=== PATIENT | female | born 1990 | race Caucasian/White ===

== ENCOUNTER 2019-08-25 10:48 | Emergency (ER) | payer MEDICAID ==
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
[2019-08-25] MEDS ORDERED: KETOROLAC 30 MG/ML VIAL IVP STA (11:27)
--- NOTE | 2019-08-25 11:59 | XRAY Report ---
Reason: chest pain Procedure Date: 08/25/2019 Accession Number: [id number] / [id number] Procedure: XR - Chest 1 View X-Ray CPT Code: 74857 Final Report FULL RESULT: EXAM: CHEST RADIOGRAPHY EXAM DATE: 08/25/2019 11:46 AM. CLINICAL HISTORY: Chest pain. COMPARISON: None. TECHNIQUE: 1 view. FINDINGS: Lungs/Pleura: No focal opacities evident. No pleural effusion. No pneumothorax. Mediastinum: Within exam limitations, the cardiomediastinal contour is normal. Other: None. IMPRESSION: Normal single view chest. RADIA
[2019-08-25] MEDS ORDERED: ALBUTEROL 1 PUFF INH STA (12:01)
[2019-08-25 12:15] LABS: BASOPHILS # (AUTO) 0.1 10^3/uL (0.0-0.1); BASOPHILS % (AUTO) 0.7 %; EOSINOPHILS # (AUTO) 0.2 10^3/uL (0.0-0.7); EOSINOPHILS % (AUTO) 1.9 %; HGB - HEMOGLOBIN 15.1 g/dL (12.0-16.0); LYMPHOCYTES # (AUTO) 2.4 10^3/uL (1.5-3.5); LYMPHOCYTES % (AUTO) 29.3 %; MEAN CORPUSCULAR HEMOGLOBIN 30.3 pg (27.0-31.0); MEAN CORPUSCULAR HGB CONC 32.2 g/dL (32.0-36.0); MEAN CORPUSCULAR VOLUME 94.2 fL (81.0-99.0); MEAN PLATELET VOLUME 9.3 fL (7.9-10.8); MONOCYTES # (AUTO) 0.4 10^3/uL (0.0-1.0); MONOCYTES % (AUTO) 5.1 %; NEUTROPHILS # (AUTO) 5.1 10^3/uL (1.5-6.6); NEUTROPHILS % (AUTO) 62.5 %; PLT - PLATELET COUNT 345 10^3/uL (130-450); RED BLOOD COUNT 4.98 10^6/uL (4.20-5.40); RED CELL DISTRIBUTION WIDTH 13.4 % (12.0-15.0); WHITE BLOOD COUNT 8.2 x10^3/uL (4.8-10.8)
[2019-08-25 12:27] LABS: ALBUMIN 4.1 g/dL (3.2-5.5); ALBUMIN/GLOBULIN RATIO 1.1 (1.0-2.2); BILIRUBIN,TOTAL 0.5 mg/dL (0.2-1.0); CALCIUM 8.9 mg/dL (8.5-10.3); CREATININE 0.6 mg/dL (0.4-1.0); TOTAL PROTEIN 7.7 g/dL (6.7-8.2)
[2019-08-25] MEDS ORDERED: CHERRY SYRUP 10 ML UDC PO ONE (13:52)
[2019-08-25] MEDS ORDERED: DEXAMETHASONE 10 MG/ML VIAL PO STA (13:52)
[2019-08-25 15:07] VITALS: BP 135/70
== END 2019-08-25 15:07 | disposition home or self-care (01) ==
LOC: ED 10:48
DX: F41.9 Anxiety disorder, unspecified (principal); J45.21 Mild intermittent asthma with (acute) exacerbation; F32.9 Major depressive disorder, single episode, unspecified
CPT/HCPCS: 36415; 71045; 80053; 83690; 84484; 85025; 85379; 93005; 94640; 96374; 99284; A9270

== ENCOUNTER 2019-10-03 09:34 | Outpatient (CLI) | payer MEDICAID | END 2019-10-03 09:35 | disposition home or self-care (01) | LOC: RT 09:34 | PROVIDERS: ATTEND Physician Assistant Medical | DX: R06.02 Shortness of breath (principal) | CPT/HCPCS: 94010 ==

== ENCOUNTER 2019-10-27 11:53 | Emergency (ER) | payer MEDICAID ==
--- NOTE | 2019-10-27 12:29 | ED Physician Documentation ---
History of Present Illness - Stated complaint Stated Complaint: LT WRIST PX - Chief complaint Chief Complaint: Ext Problem - History obtained from History obtained from: Patient - History of Present Illness Timing: Today Pain level max: 10 Pain level now: 10 - Additonal information Additional information: 29-year-old female states that she has had a "growth" on her left wrist for the past 2 months. Saw her doctor who states it was a ganglion cyst. She states she was referred to [facility] orthopedics, but is having trouble getting an appointment. Having increasing pain so came to the emergency department. Worse with movement and better with rest. Does not recall any injury. Review of Systems Constitutional: denies: Fever, Chills GI: denies: Vomiting : denies: Now [place] PD PAST MEDICAL HISTORY - Past Medical History Past Medical History: No - Past Surgical History Past Surgical History: No - Present Medications Home Medications: Ambulatory Orders Medication Instructions Recorded Confirmed Albuterol Sulf [Ventolin Hfa 1 - 2 puffs INH Q4HR PRN #1 inhaler 08/25/19 Inhaler] Venlafaxine HCl 37.5 mg PO DAILY #30 tablet 08/25/19 predniSONE [Prednisone] 40 mg PO DAILY #10 tablet 08/25/19 Meloxicam [Mobic] 7.5 mg PO BID PRN #20 tablet 10/27/19 - Allergies Allergies/Adverse Reactions: Allergies Allergy/AdvReac Type Severity Reaction Status Date / Time No Known Drug Allergies Allergy Verified 10/27/19 12:12 - Living Situation Living Situation: reports: With family Living Arrangement: reports: At home - Social History Does the pt smoke?: Yes PD ED PE NORMAL - Vitals Vital signs reviewed: Yes - General General: Alert and oriented X 3, No acute distress - HEENT HEENT: Moist mucous membranes - Neck Neck: Supple, no meningeal sign - Derm Derm: Warm and dry - Extremities Extremities: Other (Left distal radius, bony prominence with tenderness over the distal aspect. No erythema. No swelling. Neurovascular intact. Otherwise normal examination of the hand and wrist.) - Neuro Neuro: Alert and oriented X 3 - Psych Psych: Normal mood, Normal affect Results - Vitals Vitals: Vital Signs - 24 hr 10/27/19 12:06 Temperature 36.8 C Heart Rate 80 Respiratory 16 Rate Blood Pressure 148/91 H O2 Saturation 96 Oxygen O2 Source Room air - Rads (name of study) Left wrist x-ray Radiology: Prelim report reviewed, EMP read contemporaneously, See rad report (No gross acute left wrist fracture or dislocation. ) PD MEDICAL DECISION MAKING - ED course Complexity details: reviewed results, re-evaluated patient, considered differential, d/w patient ED course: Patient with what appears to be a bony prominence on the distal radius, the tendon appears to be rubbing on this prominence. Will place her in a Velcro thumb spica splint and have her follow-up with orthopedics. We will place her on anti-inflammatories as well. Patient is right-handed. Neurovascular intact. Patient counseled regarding signs and symptoms for which I believe and urgent re-evaluation would be necessary. Patient with good understanding of and agreement to plan and is comfortable going home at this time This document was made in part using voice recognition software. While efforts are made to proofread this document, sound alike and grammatical errors may occur. Departure - Departure Disposition: 01 Home, Self Care Clinical Impression: Bony prominence Condition: Good Instructions: ED Tendinitis Calcific Follow-Up: BHASKAR RUIZ MD [Primary Care Provider] - [facility] [Provider Group] - Within 1 week Prescriptions: Meloxicam [Mobic] 7.5 mg PO BID PRN #20 tablet PRN Reason: Pain Comments: Follow up with orthopedics for further care. Return if you worsen. wear the brace for comfort. Call orthopedics for an appointment.
--- NOTE | 2019-10-27 13:17 | XRAY Report ---
PROCEDURE: Wrist 3 View LT INDICATIONS: L wrist pain, distal radius TECHNIQUE: 3 views of the wrist were acquired. COMPARISON: None FINDINGS: Bones: No fractures or dislocations. No suspicious bony lesions. Scaphoid view: Scaphoid is intact. Soft tissues: No suspicious soft tissue calcifications. IMPRESSION: No gross acute left wrist fracture or dislocation. Reviewed by: Addison Olvera MD on 10/27/2019 1:16 PM PDT Approved by: Addison Olvera MD on 10/27/2019 1:16 PM PDT Station ID: [id number]
[2019-10-27 13:39] VITALS: BP 118/85
== END 2019-10-27 13:28 | disposition home or self-care (01) ==
LOC: ED 11:53
DX: M85.9 Disorder of bone density and structure, unspecified (principal)
CPT/HCPCS: 99283; 99284

== ENCOUNTER 2020-03-03 19:59 | Emergency (ER) | payer MEDICAID ==
--- NOTE | 2020-03-03 20:20 | ED Physician Documentation ---
History of Present Illness - Stated complaint Stated Complaint: FEET SWELLING/PX - Chief complaint Chief Complaint: General - History obtained from History obtained from: Patient - Additonal information Additional information: She was drinking only Mountain Dew for a couple of weeks. No water. Because of that she noted decreased urine output. Because of the decreased urine output today she started drinking more water. Even though she does not like water. Her urine output became normal and clear but then she noticed redness and swelling of her feet they were discolored. Now that is back to normal. Denies shortness of breath. No history of kidney issues. Denies drug use or possibility of . Review of Systems Constitutional: denies: Fever, Chills, Fatigue Cardiac: denies: Chest pain / pressure, Palpitations Respiratory: denies: Dyspnea, Cough PD PAST MEDICAL HISTORY - Past Medical History Cardiovascular: Other Other Past Medical History: prehypertension, pericarditis - Past Surgical History Past Surgical History: No - Present Medications Home Medications: Ambulatory Orders Medication Instructions Recorded Confirmed Albuterol Sulf [Ventolin Hfa 1 - 2 puffs INH Q4HR PRN #1 inhaler 08/25/19 Inhaler] - Allergies Allergies/Adverse Reactions: Allergies Allergy/AdvReac Type Severity Reaction Status Date / Time No Known Drug Allergies Allergy Verified 10/27/19 12:12 - Social History Does the pt smoke?: Yes Smoking Status: Current every day smoker Does the pt drink ETOH?: No Does the pt have substance abuse?: No - Immunizations Immunizations are current?: Yes - POLST Patient has POLST: No PD ED PE NORMAL - Vitals Vital signs reviewed: Yes - General General: Alert and oriented X 3, No acute distress - HEENT HEENT: PERRL, EOMI - Neck Neck: Supple, no meningeal sign, No bony TTP - Cardiac Cardiac: RRR, No murmur - Respiratory Respiratory: No respiratory distress, Clear bilaterally - Abdomen Abdomen: Normal bowel sounds, Soft, Non tender - Extremities Extremities: Other (Feet are normal in color, warm and well perfused with bounding radial pulses. There is no discoloration or swelling. No calf tenderness.) - Neuro Neuro: Alert and oriented X 3, Normal speech Results - Vitals Vitals: Vital Signs - 24 hr 03/03/20 20:00 Temperature 36.6 C Heart Rate 118 H Respiratory 18 Rate Blood Pressure 131/66 H O2 Saturation 100 Oxygen O2 Source Room air - Labs Labs: Laboratory Tests 03/03/20 03/03/20 03/03/20 20:21 20:21 20:31 Sodium 137 Potassium 3.4 L Chloride 102 Carbon Dioxide 25 Anion Gap 10.0 BUN 23 H Creatinine 0.5 Estimated GFR (MDRD) 144 Glucose 77 Calcium 8.7 Urine Color YELLOW Urine Clarity CLEAR Urine pH 7.5 Ur Specific [place] 1.025 Urine Protein NEGATIVE Urine Glucose (UA) NEGATIVE Urine Ketones NEGATIVE Urine Occult Blood NEGATIVE Urine Nitrite NEGATIVE Urine Bilirubin NEGATIVE Urine Urobilinogen 1 (NORMAL) Ur Leukocyte Esterase NEGATIVE Ur Microscopic Review NOT INDICATED Urine Culture Comments NOT INDICATED Urine HCG, Qual NEGATIVE Urine Opiates Screen POSITIVE H Ur Oxycodone Screen NEGATIVE Urine Methadone Screen NEGATIVE Ur Propoxyphene Screen NEGATIVE Ur Barbiturates Screen NEGATIVE Ur Tricyclics Screen NEGATIVE Ur Phencyclidine Scrn NEGATIVE Ur Amphetamine Screen POSITIVE H U Methamphetamines Scrn POSITIVE H U Benzodiazepines Scrn NEGATIVE Urine Cocaine Screen NEGATIVE U Cannabinoids Screen POSITIVE H PD MEDICAL DECISION MAKING - ED course ED course: 30-year-old woman presents worried about kidney function in the setting of having drank only Mountain Dew for the last 2 weeks. On labs her kidney function is fine. She does have methamphetamines in her system which she denied at the outset but admitted to after seeing the results. She was counseled to quit and she plans to do so. Departure - Departure Disposition: 01 Home, Self Care Clinical Impression: Foot pain, bilateral, Methamphetamine abuse, Dehydration Condition: Good Record reviewed to determine appropriate education?: Yes Instructions: ED Dehydration, ED Drug Abuse General Comments: Drink plenty of fluids and avoid sugary caffeinated beverages like Mountain Dew. Return for new or worsening symptoms. Avoid all illicit drugs including but not limited to methamphetamines. Follow-up with your doctor.
[2020-03-03 20:27] LABS: MUDS CUTOFF CONCENTRATIONS CUTOFF CONC BELOW:
[2020-03-03 20:31] LABS: BILIRUBIN,URINE NEGATIVE (NEGATIVE); GLUCOSE, URINE (UA) NEGATIVE (NEGATIVE); KETONES,URINE (UA) NEGATIVE (NEGATIVE); LEUKOCYTE ESTERASE, URINE NEGATIVE (NEGATIVE); NITRITE,URINE NEGATIVE (NEGATIVE); OCCULT BLOOD,URINE NEGATIVE (NEGATIVE); PH,URINE 7.5 PH (5.0-7.5); PROTEIN,URINE NEGATIVE (NEGATIVE); UROBILINOGEN,URINE 1 (NORMAL) E.U./dL (NORMAL)
[2020-03-03 20:33] LABS: CLARITY,URINE CLEAR (CLEAR); HCG UR QUAL NEGATIVE
[2020-03-03 20:41] LABS: AMPHETAMINE SCREEN,URINE POSITIVE (NEGATIVE); BENZODIAZEPINES SCREEN, URINE NEGATIVE (NEGATIVE); COCAINE SCREEN URINE NEGATIVE (NEGATIVE); METHADONE SCREEN, URINE NEGATIVE (NEGATIVE); METHAMPHETAMINES SCREEN, URINE POSITIVE (NEGATIVE); OPIATE SCREEN, URINE POSITIVE (NEGATIVE); OXYCODONE SCREEN, URINE NEGATIVE (NEGATIVE); PROPOXYPHENE SCREEN, URINE NEGATIVE (NEGATIVE); TRICYCLIC ANTIDEPRESSANT,URINE NEGATIVE (NEGATIVE)
[2020-03-03 20:45] LABS: CALCIUM 8.7 mg/dL (8.5-10.3); CREATININE 0.5 mg/dL (0.4-1.0)
[2020-03-03 21:09] VITALS: BP 125/93
== END 2020-03-03 21:09 | disposition home or self-care (01) ==
LOC: ED 19:59
DX: M79.672 Pain in left foot (principal); M79.671 Pain in right foot; F15.10 Other stimulant abuse, uncomplicated; F17.200 Nicotine dependence, unspecified, uncomplicated; R03.0 Elevated blood-pressure reading, without diagnosis of hypertension; E86.0 Dehydration
CPT/HCPCS: 36415; 80048; 80306; 81001; 81003; 81025; 87086; 99283; 99284

== ENCOUNTER 2020-07-29 10:03 | Outpatient (CLI) | payer MEDICAID ==
[2020-07-29 12:00] LABS: BASOPHILS # (AUTO) 0.1 10^3/uL (0.0-0.1); BASOPHILS % (AUTO) 0.9 %; EOSINOPHILS # (AUTO) 0.3 10^3/uL (0.0-0.7); EOSINOPHILS % (AUTO) 3.4 %; HCT - HEMATOCRIT 45.7 % (37.0-47.0); HGB - HEMOGLOBIN 14.5 g/dL (12.0-16.0); LYMPHOCYTES # (AUTO) 2.5 10^3/uL (1.5-3.5); LYMPHOCYTES % (AUTO) 31.5 %; MEAN CORPUSCULAR HEMOGLOBIN 30.9 pg (27.0-31.0); MEAN CORPUSCULAR HGB CONC 31.7 g/dL (32.0-36.0); MEAN CORPUSCULAR VOLUME 97.4 fL (81.0-99.0); MEAN PLATELET VOLUME 10.3 fL (7.9-10.8); MONOCYTES # (AUTO) 0.3 10^3/uL (0.0-1.0); MONOCYTES % (AUTO) 3.7 %; NEUTROPHILS # (AUTO) 4.8 10^3/uL (1.5-6.6); NEUTROPHILS % (AUTO) 60.1 %; PLT - PLATELET COUNT 297 10^3/uL (130-450); RED BLOOD COUNT 4.69 10^6/uL (4.20-5.40); RED CELL DISTRIBUTION WIDTH 12.7 % (12.0-15.0)
[2020-07-29 12:19] LABS: ALBUMIN 4.3 g/dL (3.2-5.5); ALBUMIN/GLOBULIN RATIO 1.5 (1.0-2.2); ALKALINE PHOSPHATASE 58 IU/L (42-121); ALT ALANINE AMINOTRANSFERASE 18 IU/L (10-60); AST ASPARTATE AMINOTRANSFERASE 22 IU/L (10-42); BILIRUBIN,TOTAL 0.4 mg/dL (0.2-1.0); BUN - BLOOD UREA NITROGEN 16 mg/dL (6-20); CALCIUM 8.6 mg/dL (8.5-10.3); CARBON DIOXIDE - CO2 26 mmol/L (21-32); CHLORIDE 105 mmol/L (101-111); CHOLESTEROL 218 mg/dL; CREATININE 0.6 mg/dL (0.4-1.0); GFR - MDRD 117 (>89); GLUCOSE 84 mg/dL (70-100); HDL CHOLESTEROL 55 mg/dL; LDL CHOLESTEROL,CALCULATED 139 mg/dL; LDL/HDL RATIO 2.5 (<4.4); POTASSIUM 3.5 mmol/L (3.5-5.0); SODIUM 139 mmol/L (135-145); TOTAL PROTEIN 7.2 g/dL (6.7-8.2); TRIGLYCERIDES 121 mg/dL; VLDL CHOLESTEROL 24 mg/dL
[2020-07-29 12:28] LABS: THYROID STIMULATING HORMONE 1.89 uIU/mL (0.34-5.60)
== END 2020-07-29 10:04 | disposition home or self-care (01) ==
LOC: LAB.N 10:03
PROVIDERS: ATTEND Nurse Practitioner Family
DX: R03.0 Elevated blood-pressure reading, without diagnosis of hypertension (principal)
CPT/HCPCS: 36415; 80053; 80061; 83721; 84443; 85025

== ENCOUNTER 2020-11-29 16:17 | Outpatient (CLI) | payer MEDICAID, MEDICARE ==
--- NOTE | 2020-11-29 17:01 | XRAY Report ---
PROCEDURE: Ankle 3 View RT INDICATIONS: ANKLE PAIN, RIGHT TECHNIQUE: 3 views of the ankle were acquired. COMPARISON: None. FINDINGS: Bones: No fractures or dislocations. Ankle mortise is normally aligned. No suspicious bony lesions . Soft tissues: No tibiotalar joint effusion. Achilles tendon appears normal. IMPRESSION: A definite source of current pain is not identified. A metallic marker has been placed a t the medial aspect of the hindfoot area, and trauma in this region is not seen. Reviewed by: Bernard Ruvalcaba MD on 11/29/2020 5:00 PM PDT Approved by: Bernard Ruvalcaba MD on 11/29/2020 5:00 PM PDT Station ID: [id number]
== END 2020-11-29 16:18 | disposition home or self-care (01) ==
LOC: DI.N 16:17
PROVIDERS: ATTEND Family Medicine
DX: M25.571 Pain in right ankle and joints of right foot (principal)

== ENCOUNTER 2021-02-03 08:00 | Outpatient (CLI) | payer MEDICAID | END 2021-02-03 23:59 | disposition home or self-care (01) | LOC: LAB.N 08:00 | PROVIDERS: ATTEND Family Medicine | DX: R05.9 Cough, unspecified (principal); Z20.822 Contact with and (suspected) exposure to COVID-19 ==

== ENCOUNTER 2021-07-02 11:26 | Emergency (ER) | payer MEDICAID ==
[2021-07-02 12:17] LABS: BASOPHILS # (AUTO) 0.1 10^3/uL (0.0-0.1); BASOPHILS % (AUTO) 0.7 %; EOSINOPHILS # (AUTO) 0.3 10^3/uL (0.0-0.7); EOSINOPHILS % (AUTO) 3.2 %; HCT - HEMATOCRIT 48.9 % (37.0-47.0); HGB - HEMOGLOBIN 16.4 g/dL (12.0-16.0); LYMPHOCYTES % (AUTO) 35.6 %; MEAN CORPUSCULAR HEMOGLOBIN 31.4 pg (27.0-31.0); MEAN CORPUSCULAR HGB CONC 33.5 g/dL (32.0-36.0); MEAN CORPUSCULAR VOLUME 93.7 fL (81.0-99.0); MEAN PLATELET VOLUME 9.5 fL (7.9-10.8); MONOCYTES # (AUTO) 0.5 10^3/uL (0.0-1.0); MONOCYTES % (AUTO) 5.3 %; NEUTROPHILS # (AUTO) 4.7 10^3/uL (1.5-6.6); PLT - PLATELET COUNT 291 10^3/uL (130-450); RED BLOOD COUNT 5.22 10^6/uL (4.20-5.40); WHITE BLOOD COUNT 8.5 x10^3/uL (4.8-10.8)
[2021-07-02 12:26] LABS: BILIRUBIN,URINE NEGATIVE (NEGATIVE); GLUCOSE, URINE (UA) NEGATIVE (NEGATIVE); KETONES,URINE (UA) NEGATIVE (NEGATIVE); LEUKOCYTE ESTERASE, URINE NEGATIVE (NEGATIVE); NITRITE,URINE NEGATIVE (NEGATIVE); OCCULT BLOOD,URINE NEGATIVE (NEGATIVE); PH,URINE 5.5 PH (5.0-7.5); PROTEIN,URINE NEGATIVE (NEGATIVE); UROBILINOGEN,URINE 0.2 (NORMAL) E.U./dL (NORMAL)
[2021-07-02 12:28] LABS: CLARITY,URINE CLEAR (CLEAR); HCG UR QUAL NEGATIVE
[2021-07-02 12:31] LABS: ALBUMIN 4.7 g/dL (3.2-5.5); ALBUMIN/GLOBULIN RATIO 1.3 (1.0-2.2); BILIRUBIN,TOTAL 0.6 mg/dL (0.2-1.0); CALCIUM 9.1 mg/dL (8.5-10.3); CREATININE 0.7 mg/dL (0.4-1.0); POTASSIUM 3.6 mmol/L (3.5-5.0); TOTAL PROTEIN 8.3 g/dL (6.7-8.2)
[2021-07-02] MEDS ORDERED: HYDROmorphone 1 MG/ML CARPUJECT IVP STA (12:44)
--- NOTE | 2021-07-02 12:49 | ED Physician Documentation ---
History of Present Illness - Stated complaint Stated Complaint: LT BACK PX, ABD PX - Chief complaint Chief Complaint: Abd Pain - History obtained from History obtained from: Patient - History of Present Illness Timing: Yesterday Pain level max: 8 Pain level now: 6 - Additonal information Additional information: Patient is a 31-year-old female who presents to the emergency department left lower quadrant abdominal pain. Started yesterday and has continued throughout the day today. She states it feels similar to her prior kidney infection but is not having any urinary symptoms. Nothing makes it better or worse. She states she is getting ready to start her menses. She states that she has not had any diarrhea but has had some constipation. No nausea or vomiting. No fevers. No STD exposure. Review of Systems Constitutional: denies: Fever, Chills Respiratory: denies: Cough GI: denies: Nausea, Vomiting, Diarrhea, Hematemesis, Bloody / black stool : denies: Dysuria, Frequency, Hesitancy, Discharge Skin: denies: Rash Musculoskeletal: denies: Neck pain, Back pain PD PAST MEDICAL HISTORY - Past Medical History Past Medical History: Yes Cardiovascular: Other Other Past Medical History: Pulmonary hypertension. - Past Surgical History Past Surgical History: No General: Appendectomy - Present Medications Home Medications: Ambulatory Orders Medication Instructions Recorded Confirmed Albuterol Sulf [Ventolin Hfa 1 - 2 puffs INH Q4HR PRN #1 inhaler 08/25/19 Inhaler] Ondansetron Odt [Zofran] 4 mg TL Q6H PRN #10 tablet 07/02/21 Oxycodone HCl/Acetaminophen 1 - 2 each PO Q6H PRN #14 tablet 07/02/21 [Percocet 5-325 mg Tablet] - Allergies Allergies/Adverse Reactions: Allergies Allergy/AdvReac Type Severity Reaction Status Date / Time No Known Drug Allergies Allergy Verified 07/02/21 11:37 - Social History Does the pt smoke?: Yes Smoking Status: Current every day smoker Does the pt drink ETOH?: No Does the pt have substance abuse?: Yes Substance Use and Type: Marijuana, Meth - Immunizations Immunizations are current?: Yes - POLST Patient has POLST: No PD ED PE NORMAL - Vitals Vital signs reviewed: Yes - General General: Alert and oriented X 3, No acute distress - HEENT HEENT: Moist mucous membranes - Neck Neck: Supple, no meningeal sign - Cardiac Cardiac: RRR, Strong equal pulses - Respiratory Respiratory: No respiratory distress, Clear bilaterally - Abdomen Abdomen: Soft, Non distended, Other (Mild tenderness to palpation left lower quadrant. Otherwise normal exam) - Back Back: No CVA TTP, No spinal TTP - Derm Derm: Warm and dry - Extremities Extremities: No edema, No calf tenderness / cord - Neuro Neuro: Alert and oriented X 3 - Psych Psych: Normal mood, Normal affect Results - Vitals Vitals: Vital Signs - 24 hr 07/02/21 07/02/21 07/02/21 11:33 13:31 14:43 Temperature 36.8 C 37 C Heart Rate 101 H 93 59 L Respiratory 16 18 20 Rate Blood Pressure 148/83 H 109/99 H 103/77 O2 Saturation 100 100 100 Oxygen O2 Source Room air - Labs Labs: Laboratory Tests 07/02/21 07/02/21 07/02/21 11:45 12:14 12:14 WBC 8.5 RBC 5.22 Hgb 16.4 H Hct 48.9 H MCV 93.7 MCH 31.4 H MCHC 33.5 RDW 13.0 Plt Count 291 MPV 9.5 Neut # (Auto) 4.7 Lymph # (Auto) 3.0 [place] # (Auto) 0.5 Eos # (Auto) 0.3 Baso # (Auto) 0.1 Absolute Nucleated RBC 0.00 Nucleated RBC % 0.0 Sodium 134 L Potassium 3.6 Chloride 99 L Carbon Dioxide 24 Anion Gap 11.0 BUN 18 Creatinine 0.7 Estimated GFR (MDRD) 97 Glucose 69 L Calcium 9.1 Total Bilirubin 0.6 AST 15 ALT 14 Alkaline Phosphatase 59 Total Protein 8.3 H Albumin 4.7 Globulin 3.6 Albumin/Globulin Ratio 1.3 Lipase 39 Urine Color YELLOW Urine Clarity CLEAR Urine pH 5.5 Ur Specific [place] >=1.030 H Urine Protein NEGATIVE Urine Glucose (UA) NEGATIVE Urine Ketones NEGATIVE Urine Occult Blood NEGATIVE Urine Nitrite NEGATIVE Urine Bilirubin NEGATIVE Urine Urobilinogen 0.2 (NORMAL) Ur Leukocyte Esterase NEGATIVE Ur Microscopic Review NOT INDICATED Urine Culture Comments NOT INDICATED Urine HCG, Qual NEGATIVE - Rads (name of study) CT abdomen and pelvis Radiology: Final report received, EMP read contemporaneously, See rad report Pelvic ultrasound Radiology: Final report received, EMP read contemporaneously, See rad report PD MEDICAL DECISION MAKING - ED course Complexity details: reviewed results, re-evaluated patient, considered differ ential, d/w patient ED course: 31-year-old female with a hemorrhagic ovarian cyst. Pain well controlled. We will have her follow-up with her doctor for further care. Patient counseled regarding signs and symptoms for which I believe and urgent re-evaluation would be necessary. Patient with good understanding of and agreement to plan and is comfortable going home at this time This document was made in part using voice recognition software. While efforts are made to proofread this document, sound alike and grammatical errors may occur. IMPRESSION: 1. Appearance of ruptured left hemorrhagic cyst. 2. Appearance of hemorrhagic cyst on the right on CT likely represents tilt of the uterus as it is not visualized on current ultrasound. IMPRESSION: Rim-enhancing foci within the adnexa surrounded by mild fluid most suggestive of hemorrhagic cyst, likely partially ruptured. Departure - Departure Disposition: 01 Home, Self Care Clinical Impression: Hemorrhagic cyst of left ovary Condition: Good Instructions: ED Cyst Ovarian Follow-Up: Claudia Sousa ARNP [Primary Care Provider] - Within 1 week Prescriptions: Oxycodone HCl/Acetaminophen [Percocet 5-325 mg Tablet] 1 - 2 each PO Q6H PRN #14 tablet PRN Reason: pain Ondansetron Odt [Zofran] 4 mg TL Q6H PRN #10 tablet PRN Reason: Nausea / Vomiting Comments: You have a hemorrhagic ovarian cyst on the left. This should resolve on its own. Please follow-up with your doctor for further care. Your prescription was sent to [facility] in [place]. I am prescribing a short course of narcotic pain medication for you. These are potentially dangerous and addictive medications that should be used carefully. These medications may constipate you. Take an [id number] stool softener (docusate) twice daily with plenty of water while taking these medications. If you go 24 hours without a bowel movement, take [id number] miralax, per package instructions. Do not drink or drive while taking these medications. If you received narcotic or sedating medications while in the emergency department, do not drive for 24 hours. Store this medication in a safe, secure place and out of reach of children. It is a violation of federal law to give or sell this medication to another person or to use in a manner other than prescribed. The ED will not refill narcotic prescriptions, including prescriptions lost or stolen. To dispose of unwanted medications: 1. [facility] at [address] in [place] has a medication drop box. They accept prescription medications (in pill form) Wednesday through Wednesday 9:00 a.m. to 5:00 p.m. 2. [facility] [employer] accepts prescription medications (in pill form only) for disposal year round. Call for more information. 3. Contact the [facility] for the next [employer] sponsored prescription d rug collection event. , [phone], or [phone]; Discharge Date/Time: 07/02/21 15:10
[2021-07-02] MEDS ORDERED: IOVERSOL 320 100 ML VIAL IVP ONE ×2 (13:19→13:52)
--- NOTE | 2021-07-02 14:07 | CT Report ---
PROCEDURE: Abdomen/Pelvis W INDICATIONS: LLQ abd pain CONTRAST: IV CONTRAST: Optiray 320 ml: 100 PO CONTRAST: *NO PO CONTRAST TECHNIQUE: After the administration of IV contrast, 5 mm thick sections acquired from the diaphragms to the symp hysis. 5 mm thick coronal and sagittal reformats were acquired. For radiation dose reduction, the f ollowing was used: automated exposure control, adjustment of mA and/or kV according to patient size. COMPARISON: Pelvic ultrasound 07/02/2021 FINDINGS: Image quality: Excellent. ABDOMEN: Lung bases: Lung bases are clear. Heart size is normal. Solid organs: Liver and spleen are normal in size and enhancement. Gallbladder Biliary system is non dilated. Pancreas enhances normally. No adrenal nodules. Kidneys demonstrate normal size an d enhancement, without hydronephrosis. Peritoneum and bowel: Bowel loops demonstrate normal wall thickness and caliber. No free fluid or a ir. Nodes and vessels: No retroperitoneal or mesenteric adenopathy by size criteria. Aorta and inferior vena cava are normal in size. Miscellaneous: No ventral hernias. PELVIS: Genitourinary: Bladder wall thickness is normal. Rim-enhancing low-attenuation foci are present wit hin the ovaries bilaterally measuring 1.6 cm on the left and 2.9 cm on the right. Mild surrounding fr ee fluid is present. Miscellaneous: No inguinal hernias or adenopathy. Bones: No suspicious bony lesions. No vertebral body compression fractures. IMPRESSION: Rim-enhancing foci within the adnexa surrounded by mild fluid most suggestive of hemorrhagic cyst, li sanjuana partially ruptured. Reviewed by: Cecile Ray MD on 07/02/2021 2:06 PM PST Approved by: Cecile Ray MD on 07/02/2021 2:06 PM PST Station ID: [id number]
--- NOTE | 2021-07-02 14:17 | Ultrasound Report ---
PROCEDURE: Pelvic w/Transvag+Doppler Comp INDICATIONS: pelvic pain, L TECHNIQUE: Real-time scanning was performed of the pelvic organs, with image documentation. Additional endovagi nal scanning was necessary due to incomplete visualization of the adnexal and endometrial structures by transabdominal scanning. Doppler was performed with waveforms. COMPARISON: None. FINDINGS: No pathologic free abdominal or pelvic fluid. Uterus: Uterus is normal in size at 9.4 x 5.0 x 6.7 cm. The endometrium measures 14 mm in combined thickness. Ovaries: Right ovary measures 3.1 x 1.5 x 2.1 cm. Volume measures 5.2 cc. Left ovary measures 3.9 x 1.9 x 2.6 cm. Volume measures 10.3 cc. There is a focus of heterogeneous echogenicity within the left ovary with minimal surrounding fluid. Normal appearing arterial and venous waveforms are confirmed t o each ovary.] IMPRESSION: 1. Appearance of ruptured left hemorrhagic cyst. 2. Appearance of hemorrhagic cyst on the right on CT likely represents tilt of the uterus as it is no t visualized on current ultrasound. Reviewed by: Cecile Ray MD on 07/02/2021 2:15 PM PST Approved by: Cecile Ray MD on 07/02/2021 2:15 PM PST Station ID: [id number]
[2021-07-02 14:47] VITALS: BP 103/77
[2021-07-02] MEDS ORDERED: oxyCODONE 5 MG TABLET PO STA (14:51)
== END 2021-07-02 15:10 | disposition home or self-care (01) ==
LOC: ED 11:26
DX: N83.202 Unspecified ovarian cyst, left side (principal); F17.200 Nicotine dependence, unspecified, uncomplicated
CPT/HCPCS: 36415; 74177; 76830; 76856; 80053; 81003; 81025; 83690; 85025; 93975; 96374; 99282; 99284; A9270; J1170; Q9967; 81001; 87086

== ENCOUNTER 2021-08-28 09:44 | Outpatient (CLI) | payer MEDICAID ==
[2021-08-28 11:48] LABS: BASOPHILS # (AUTO) 0.1 10^3/uL (0.0-0.1); BASOPHILS % (AUTO) 0.9 %; EOSINOPHILS # (AUTO) 0.3 10^3/uL (0.0-0.7); EOSINOPHILS % (AUTO) 3.1 %; LYMPHOCYTES # (AUTO) 2.9 10^3/uL (1.5-3.5); LYMPHOCYTES % (AUTO) 36.4 %; MEAN CORPUSCULAR HEMOGLOBIN 30.7 pg (27.0-31.0); MEAN CORPUSCULAR HGB CONC 32.6 g/dL (32.0-36.0); MEAN CORPUSCULAR VOLUME 94.3 fL (81.0-99.0); MEAN PLATELET VOLUME 9.8 fL (7.9-10.8); MONOCYTES # (AUTO) 0.4 10^3/uL (0.0-1.0); MONOCYTES % (AUTO) 5.2 %; NEUTROPHILS # (AUTO) 4.3 10^3/uL (1.5-6.6); NEUTROPHILS % (AUTO) 54.1 %; PLT - PLATELET COUNT 358 10^3/uL (130-450); RED BLOOD COUNT 4.56 10^6/uL (4.20-5.40)
[2021-08-28 12:14] LABS: BILIRUBIN,URINE NEGATIVE (NEGATIVE); GLUCOSE, URINE (UA) NEGATIVE (NEGATIVE); KETONES,URINE (UA) NEGATIVE (NEGATIVE); LEUKOCYTE ESTERASE, URINE NEGATIVE (NEGATIVE); NITRITE,URINE NEGATIVE (NEGATIVE); OCCULT BLOOD,URINE NEGATIVE (NEGATIVE); PROTEIN,URINE NEGATIVE (NEGATIVE); UROBILINOGEN,URINE 0.2 (NORMAL) E.U./dL (NORMAL)
[2021-08-28 12:15] LABS: CLARITY,URINE CLEAR (CLEAR)
[2021-08-28 12:20] LABS: ALBUMIN 4.2 g/dL (3.2-5.5); ALBUMIN/GLOBULIN RATIO 1.4 (1.0-2.2); ALKALINE PHOSPHATASE 50 IU/L (42-121); ALT ALANINE AMINOTRANSFERASE 20 IU/L (10-60); AST ASPARTATE AMINOTRANSFERASE 19 IU/L (10-42); BILIRUBIN,TOTAL 0.3 mg/dL (0.2-1.0); BUN - BLOOD UREA NITROGEN 15 mg/dL (6-20); CALCIUM 8.9 mg/dL (8.5-10.3); CARBON DIOXIDE - CO2 27 mmol/L (21-32); CHLORIDE 101 mmol/L (101-111); CHOL/HDL RATIO 3.7 (<4.4); CHOLESTEROL 210 mg/dL; CREATININE 0.6 mg/dL (0.4-1.0); GFR - MDRD 116 (>89); GLUCOSE 78 mg/dL (70-100); HDL CHOLESTEROL 57 mg/dL; LDL CHOLESTEROL,CALCULATED 128 mg/dL; LDL/HDL RATIO 2.2 (<4.4); POTASSIUM 4.2 mmol/L (3.5-5.0); SODIUM 138 mmol/L (135-145); TOTAL PROTEIN 7.1 g/dL (6.7-8.2); TRIGLYCERIDES 124 mg/dL; VLDL CHOLESTEROL 25 mg/dL
[2021-08-28 12:22] LABS: THYROID STIMULATING HORMONE 1.95 uIU/mL (0.34-5.60)
== END 2021-08-28 09:45 | disposition home or self-care (01) ==
LOC: LAB.N 09:44
PROVIDERS: ATTEND Nurse Practitioner
DX: I10 Essential (primary) hypertension (principal); R53.83 Other fatigue; Z13.220 Encounter for screening for lipoid disorders
CPT/HCPCS: 36415; 80053; 80061; 81001; 81003; 83721; 84443; 85025; 87086

== ENCOUNTER 2021-09-26 10:30 | Outpatient (CLI) | payer MEDICAID ==
--- NOTE | 2021-09-26 14:21 | Ultrasound Report ---
PROCEDURE: Duplex Lwr Ext Arterial Bilat INDICATIONS: BILATERAL CLAUDICATION TECHNIQUE: Color and pulse Doppler interrogation was performed of both lower extremity arterial systems, with im age documentation. COMPARISON: None FINDINGS: Right lower extremity: Common femoral artery: 68 cm/sec, with triphasic flow. Deep femoral artery: 69 cm/sec, with triphasic flow. Proximal superficial femoral artery: 66 cm/sec, with triphasic flow. Mid superficial femoral artery: 100 cm/sec, with triphasic flow. Distal superficial femoral artery: 74 cm/sec, with triphasic flow. Popliteal artery: 51 cm/sec, with triphasic flow. Posterior tibial artery: 52 cm/sec, with triphasic flow. Anterior tibial artery/dorsalis pedis: 50 cm/sec, with triphasic flow. Yu-scale imaging description: Negative Left lower extremity: Common femoral artery: 68 cm/sec, with triphasic flow. Deep femoral artery: 67 cm/sec, with triphasic flow. Proximal superficial femoral artery: 62 cm/sec, with triphasic flow. Mid superficial femoral artery: 103 cm/sec, with triphasic flow. Distal superficial femoral artery: 81 cm/sec, with triphasic flow. Popliteal artery: 59 cm/sec, with triphasic flow. Posterior tibial artery: 54 cm/sec, with triphasic flow. Anterior tibial artery/dorsalis pedis: 47 cm/sec, with triphasic flow. Yu-scale imaging description: Negative IMPRESSION: No evidence of arterial deficiency to the bilateral lower extremities. Reviewed by: Herbie Leiva MD on 09/26/2021 2:20 PM PDT Approved by: Herbie Leiva MD on 09/26/2021 2:20 PM PDT Station ID: [id number]
== END 2021-09-26 10:31 | disposition home or self-care (01) ==
LOC: DI 10:30
PROVIDERS: ATTEND Nurse Practitioner
DX: I73.9 Peripheral vascular disease, unspecified (principal)
CPT/HCPCS: 93925

== ENCOUNTER 2022-02-06 18:30 | Emergency (ER) | payer MEDICAID ==
[2022-02-06] MEDS ORDERED: MAG HYDROX/AL HYDROX/SIMETH 30 ML UDC PO STA ×2 (19:22→20:55)
[2022-02-06] MEDS ORDERED: LIDOCAINE VISCOUS 2% 15 ML UDC MM STA ×2 (19:22→20:55)
--- NOTE | 2022-02-06 19:24 | ED Physician Documentation ---
PD HPI CHEST PAIN - Stated complaint Stated Complaint: R SIDE BREAST PX - Chief complaint Chief Complaint: Cardiac - History obtained from History obtained from: Patient - Additional information Additional information: 31-year-old woman with history of hypertension and pulmonary hypertension is taking clindamycin for dental infection. 2 days ago she felt like a pill got stuck and ever since then she has right-sided substernal chest pain especially with swallowing and position changes. She is not short of breath. It hurts to eat or drink anything including water. Review of Systems Ten Systems: 10 systems reviewed and negative Constitutional: denies: Fever, Chills Cardiac: reports: Chest pain / pressure Respiratory: denies: Dyspnea, Cough PD PAST MEDICAL HISTORY - Past Medical History Cardiovascular: Other - Past Surgical History Past Surgical History: No General: Appendectomy - Present Medications Home Medications: Ambulatory Orders Medication Instructions Recorded Confirmed Albuterol Sulf [Ventolin Hfa 1 - 2 puffs INH Q4HR PRN #1 inhaler 08/25/19 Inhaler] Ondansetron Odt [Zofran] 4 mg TL Q6H PRN #10 tablet 07/02/21 Oxycodone HCl/Acetaminophen 1 - 2 each PO Q6H PRN #14 tablet 07/02/21 [Percocet 5-325 mg Tablet] HYDROcod/ACETAM 5/325 [[place] 5/325] 1 - 2 tab PO Q6H PRN #15 tablet 02/06/22 Sucralfate [Carafate] 1 gm PO ACHS #60 tablet 02/06/22 - Allergies Allergies/Adverse Reactions: Allergies Allergy/AdvReac Type Severity Reaction Status Date / Time Penicillins Allergy Unknown Verified 02/06/22 18:40 - Social History Does the pt smoke?: Yes Smoking Status: Current every day smoker Does the pt drink ETOH?: No Does the pt have substance abuse?: Yes - Immunizations Immunizations are current?: Yes - POLST Patient has POLST: No PD ED PE NORMAL - Vitals Vital signs reviewed: Yes - General General: Alert and oriented X 3, Other (She appears uncomfortable) - HEENT HEENT: PERRL, EOMI - Neck Neck: Supple, no meningeal sign, No bony TTP - Cardiac Cardiac: RRR, No murmur - Respiratory Respiratory: No respiratory distress, Clear bilaterally - Abdomen Abdomen: Non tender - Back Back: No CVA TTP, No spinal TTP - Derm Derm: Normal color, Warm and dry - Extremities Extremities: No edema, No calf tenderness / cord - Neuro Neuro: Alert and oriented X 3, Normal speech Results - Vitals Vitals: Vital Signs - 24 hr 02/06/22 18:35 Temperature 36.8 C Heart Rate 107 H Respiratory 14 Rate Blood Pressure 123/91 H O2 Saturation 100 Oxygen O2 Source Room air - EKG (time done) 1842 Rate: Rate (enter#) (100) Rhythm: Sinus tachycardia, LAE, SHANNAN [place]: Normal Intervals: Normal SC QRS: Normal Ischemia: Normal ST segments - Labs Labs: Laboratory Tests 02/06/22 02/06/22 02/06/22 19:32 19:32 19:32 WBC 9.4 RBC 4.84 Hgb 14.9 Hct 44.4 MCV 91.7 MCH 30.8 MCHC 33.6 RDW 12.7 Plt Count 428 MPV 9.3 Neut # (Auto) 6.1 Lymph # (Auto) 2.7 [place] # (Auto) 0.4 Eos # (Auto) 0.1 Baso # (Auto) 0.1 Absolute Nucleated RBC 0.00 Nucleated RBC % 0.0 Sodium 137 Potassium 4.0 Chloride 98 L Carbon Dioxide 29 Anion Gap 10.0 BUN 15 Creatinine 0.6 Estimated GFR (MDRD) 116 Glucose 91 Calcium 9.3 Total Bilirubin 0.6 AST 20 ALT 15 Alkaline Phosphatase 88 Troponin I High Sens < 2.3 L Total Protein 8.9 H Albumin 4.6 Globulin 4.3 H Albumin/Globulin Ratio 1.1 Lipase 35 - Rads (name of study) CT Chest Radiology: EMP read contemporaneously (NAD) PD MEDICAL DECISION MAKING - ED course ED course: 31-year-old woman developed what is likely esophageal pain, After having a pill of clindamycin stuck in her esophagus from 2 days ago. She was pain-free after the administration of a GI cocktail. CT showed no evidence of Boerhaave syndrome. Departure - Departure Disposition: 01 Home, Self Care Clinical Impression: Chest pain Qualifiers: Chest pain type: unspecified Qualified Code(s): R07.9 - Chest pain, unspecified Chemical burn of esophagus Qualifiers: Encounter type: initial encounter Qualified Code(s): T28.6XXA - Corrosion of esophagus, initial encounter Condition: Good Record reviewed to determine appropriate education?: Yes Instructions: ED GERD Prescriptions: Sucralfate [Carafate] 1 gm PO ACHS #60 tablet HYDROcod/ACETAM 5/325 [[place] 5/325] 1 - 2 tab PO Q6H PRN #15 tablet PRN Reason: Pain Comments: I sent prescription electronically to [facility] pharmacy in [place]. Call your doctor to arrange a follow-up appointment, make the next available appointment. In the interim, return anytime if worse or if new symptoms develop. I am prescribing a short course of narcotic pain medication for you. These are potentially dangerous and addictive medications that should be used carefully. These medications may constipate you. Take an zygw-kvq-svlycug stool softener (docusate) twice daily with plenty of water while taking these medications. If you go 24 hours without a bowel movement, take sqcx-qer-bqptypy miralax, per package instructions. Do not drink or drive while taking these medications. If you received narcotic or sedating medications while in the emergency department, do not drive for 24 hours. Store this medication in a safe, secure place and out of reach of children. It is a violation of federal law to give or sell this medication to another person or to use in a manner other than prescribed. The ED will not refill narcotic prescriptions, including prescriptions lost or stolen. To dispose of unwanted medications: 1. [facility] at [address] [facility] in [place] has a medication drop box. They accept prescription medications (in pill form) Wednesday through Wednesday 9:00 a.m. to 5:00 p.m. 2. The [facility] [place] [employer] accepts prescription medications (in pill form only) for disposal year round. Call for more informati on. 3. Contact the [facility] for the next [facility] sponsored prescription drug collection event. , [phone], or [phone]; Note that many narcotic pain relievers also contain Tylenol/acetaminophen. Please ensure that your total dose of acetaminophen from all sources does not exceed 3 g (3000 mg) per day.
[2022-02-06 19:37] LABS: BASOPHILS # (AUTO) 0.1 10^3/uL (0.0-0.1); BASOPHILS % (AUTO) 0.7 %; EOSINOPHILS # (AUTO) 0.1 10^3/uL (0.0-0.7); EOSINOPHILS % (AUTO) 1.1 %; HCT - HEMATOCRIT 44.4 % (37.0-47.0); HGB - HEMOGLOBIN 14.9 g/dL (12.0-16.0); LYMPHOCYTES # (AUTO) 2.7 10^3/uL (1.5-3.5); LYMPHOCYTES % (AUTO) 28.6 %; MEAN CORPUSCULAR HEMOGLOBIN 30.8 pg (27.0-31.0); MEAN CORPUSCULAR HGB CONC 33.6 g/dL (32.0-36.0); MEAN CORPUSCULAR VOLUME 91.7 fL (81.0-99.0); MEAN PLATELET VOLUME 9.3 fL (7.9-10.8); MONOCYTES # (AUTO) 0.4 10^3/uL (0.0-1.0); NEUTROPHILS # (AUTO) 6.1 10^3/uL (1.5-6.6); NEUTROPHILS % (AUTO) 65.3 %; PLT - PLATELET COUNT 428 10^3/uL (130-450); RED BLOOD COUNT 4.84 10^6/uL (4.20-5.40); RED CELL DISTRIBUTION WIDTH 12.7 % (12.0-15.0); WHITE BLOOD COUNT 9.4 x10^3/uL (4.8-10.8)
[2022-02-06] MEDS ORDERED: iohexoL-300 100 ML VIAL ONE (19:44)
[2022-02-06 19:54] LABS: ALBUMIN 4.6 g/dL (3.2-5.5); ALBUMIN/GLOBULIN RATIO 1.1 (1.0-2.2); BILIRUBIN,TOTAL 0.6 mg/dL (0.2-1.0); CALCIUM 9.3 mg/dL (8.5-10.3); CREATININE 0.6 mg/dL (0.4-1.0); TOTAL PROTEIN 8.9 g/dL (6.7-8.2)
[2022-02-06] MEDS ORDERED: iohexoL-300 100 ML VIAL IVP ONE (20:14)
--- NOTE | 2022-02-06 21:07 | CT Report ---
PROCEDURE: CHEST W INDICATIONS: Chest pain ? Boerhaaves CONTRAST: IV CONTRAST: Isovue 300 ml: 100 PO CONTRAST: *NO PO CONTRAST TECHNIQUE: After the administration of intravenous contrast, 1 mm axial images were acquired from the pulmonary apices through the posterior costophrenic angles. Axial 5 mm soft tissue kernel reconstructions were performed as well as 8 mm axial MIP and coronal and sagittal 5 mm reformations. For radiation dose reduction, the following was used: automated exposure control, adjustment of mA and/or kV according to patient size. COMPARISON: None. FINDINGS: Image quality: Excellent. Lower Neck: No lymphadenopathy by size criteria. Thyroid: Visualized thyroid demonstrates no discrete nodules. Axillae: No lymphadenopathy by size criteria. Chest Wall: Unremarkable. Bones: Visualized osseous structures demonstrate no suspicious lesions. Lungs and Airways: No acute consolidation. No suspicious pulmonary nodules. The trachea and central airways are patent. Pleura: No pneumothorax or pleural effusions. Heart: Heart size is normal. No pericardial effusion. Thoracic Vessels: The aorta and pulmonary arteries are normal in size. Mediastinum and Nelly: No lymphadenopathy by size criteria. There is a small amount of residual thymus in the anterior mediastinum. No evidence of pneumomediastinum. No mediastinal fluid collections. Esophagus: No wall thickening. No hiatal hernia. Abdomen: Visualized upper abdominal solid organs appear normal. Upper abdominal bowel loops are nor mal in caliber. IMPRESSION: 1. No pleural effusions, pneumomediastinum, or other evidence of Boerhaave syndrome. 2. No acute intrathoracic abnormality. Reviewed by: Choco Flores MD on 02/06/2022 9:06 PM PDT Approved by: Choco Flores MD on 02/06/2022 9:06 PM PDT Station ID: [id number]
[2022-02-06] MEDS ORDERED: HYDROcod/ACET 5/325 Prepack 4 PO STA (21:13)
[2022-02-06 21:31] VITALS: BP 112/82
== END 2022-02-06 21:35 | disposition home or self-care (01) ==
LOC: ED 18:30
DX: R07.89 Other chest pain (principal); R07.0 Pain in throat; T65.891A Toxic effect of other specified substances, accidental (unintentional), initial encounter; T28.6XXA Corrosion of esophagus, initial encounter; X58.XXXA Exposure to other specified factors, initial encounter; R00.0 Tachycardia, unspecified; I10 Essential (primary) hypertension; F17.200 Nicotine dependence, unspecified, uncomplicated
CPT/HCPCS: 36415; 71260; 80053; 83690; 84484; 85025; 93005; 99283; 99284; A9270; Q9967

== ENCOUNTER 2022-03-19 10:25 | Outpatient (CLI) | payer MEDICAID ==
[2022-03-19 12:33] LABS: BASOPHILS % (AUTO) 0.6 %; EOSINOPHILS # (AUTO) 0.2 10^3/uL (0.0-0.7); EOSINOPHILS % (AUTO) 2.8 %; HCT - HEMATOCRIT 45.6 % (37.0-47.0); HGB - HEMOGLOBIN 14.6 g/dL (12.0-16.0); LYMPHOCYTES % (AUTO) 28.8 %; MEAN CORPUSCULAR VOLUME 93.8 fL (81.0-99.0); MEAN PLATELET VOLUME 10.2 fL (7.9-10.8); MONOCYTES # (AUTO) 0.5 10^3/uL (0.0-1.0); NEUTROPHILS # (AUTO) 4.2 10^3/uL (1.5-6.6); NEUTROPHILS % (AUTO) 60.4 %; PLT - PLATELET COUNT 319 10^3/uL (130-450); RED BLOOD COUNT 4.86 10^6/uL (4.20-5.40); RED CELL DISTRIBUTION WIDTH 13.2 % (12.0-15.0); WHITE BLOOD COUNT 6.9 x10^3/uL (4.8-10.8)
[2022-03-19 12:47] LABS: ALBUMIN 4.4 g/dL (3.2-5.5); ALBUMIN/GLOBULIN RATIO 1.3 (1.0-2.2); ALKALINE PHOSPHATASE 63 IU/L (42-121); ALT ALANINE AMINOTRANSFERASE 20 IU/L (10-60); AST ASPARTATE AMINOTRANSFERASE 24 IU/L (10-42); BILIRUBIN,TOTAL 0.9 mg/dL (0.2-1.0); BUN - BLOOD UREA NITROGEN 20 mg/dL (6-20); CALCIUM 9.2 mg/dL (8.5-10.3); CARBON DIOXIDE - CO2 26 mmol/L (21-32); CHLORIDE 102 mmol/L (101-111); CHOL/HDL RATIO 3.3 (<4.4); CHOLESTEROL 220 mg/dL; CREATININE 0.7 mg/dL (0.4-1.0); GFR - MDRD 96 (>89); GLUCOSE 93 mg/dL (70-100); HDL CHOLESTEROL 66 mg/dL; LDL CHOLESTEROL,CALCULATED 134 mg/dL; POTASSIUM 4.2 mmol/L (3.5-5.0); SODIUM 138 mmol/L (135-145); TOTAL PROTEIN 7.9 g/dL (6.7-8.2); TRIGLYCERIDES 98 mg/dL; VLDL CHOLESTEROL 20 mg/dL
[2022-03-19 12:58] LABS: THYROID STIMULATING HORMONE 1.8 uIU/mL (0.34-5.60)
== END 2022-03-19 10:26 | disposition home or self-care (01) ==
LOC: LAB.N 10:25
PROVIDERS: ATTEND Nurse Practitioner
DX: F41.9 Anxiety disorder, unspecified (principal); F32.A Depression, unspecified; Z87.898 Personal history of other specified conditions
CPT/HCPCS: 36415; 80053; 80061; 83721; 84443; 85025

== ENCOUNTER 2022-05-30 10:16 | Emergency (ER) | payer MEDICAID ==
--- OUTSIDE RECORDS SUMMARY | 2022-05-30 10:58 | EXTERNAL MEDICAL SUMMARY RPT | Continuity of Care Document ---
:1990 Author Organization [facility] Address [address] [place] [id number] Phone Allergies No information. Encounters No information. Functional Status No information. Immunizations No information. Medications No information. Problems date description facility 2022-04-10 11:16 Dysphagia, unspecified [facility] 2022-04-10 14:04 Dysphagia, unspecified [facility] Procedures No information. Results/Labs test date author facility value unit interpret ation Result panel 1 (unknown) (no (unknown) (unknown) (no value) (units (unk nown) date) unknown) (unknown) (no (unknown) (unknown) [id number] (units (unkno wn) date) unknown) (unknown) (no (unknown) (unknown) 1. No tracheal (units (unknown) date) aspiration unknown) visualized during the exam. (unknown) (no (unknown) (unknown) 04/10/22 (units (unkno wn) date) unknown) (unknown) (no (unknown) (unknown) [address] [place] [address] (units (unknown) date) unknown) (unknown) (no (unknown) (unknown) 2. Please see the (units (unknown) date) speech pathologist unknown) report for additional details. (unknown) (no (unknown) (unknown) AP projection (units ( unknown) date) filming may also unknown) be performed with patient swallowing. (unknown) (no (unknown) (unknown) Accession Number: (units (unknown) date) [id number] unknown) (unknown) (no (unknown) (unknown) Age/Sex: 32 / F (units (unknown) date) Date of Service: unknown) (unknown) (no (unknown) (unknown) [place], [place] (units ( unknown) date) [id number] unknown) (unknown) (no (unknown) (unknown) Approved by: (units (u nknown) date) alyssa Coto M.D. on 04/10/2022 at 12:17 (unknown) (no (unknown) (unknown) COMPARISON: None. (units (unknown) date) unknown) (unknown) (no (unknown) (unknown) COMPARISON: (units (un known) date) unknown) (unknown) (no (unknown) (unknown) : 1990 (units (unknown) date) Acct:[id number] unknown) (unknown) (no (unknown) (unknown) Dictated by: (units (u nknown) date) alyssa Coto M.D. on 04/10/2022 at 12:16 (unknown) (no (unknown) (unknown) FINDINGS: (units (unkn own) date) unknown) (unknown) (no (unknown) (unknown) Function: The (units ( unknown) date) oral preparatory unknown) phase appears normal, with proper containment. (unknown) (no (unknown) (unknown) IMPRESSION: (units (un known) date) unknown) (unknown) (no (unknown) (unknown) INDICATIONS: (units (u nknown) date) DYSPHAGIA unknown) (unknown) (no (unknown) (unknown) [facility] (units (unknown) date) unknown) (unknown) (no (unknown) (unknown) Loc: RAD (units (unkno wn) date) unknown) (unknown) (no (unknown) (unknown) Morphology: No (units (unknown) date) cricopharyngeal unknown) bar is identified. No Zenker's diverticulum. (unknown) (no (unknown) (unknown) No (units (unkno wn) date) unknown) (unknown) (no (unknown) (unknown) Ordering (units (unkno wn) date) Provider: unknown) Claudia Sousa (unknown) (no (unknown) (unknown) PROCEDURE: FL (units ( unknown) date) BARIUM SWALLOW W unknown) SPEECH (unknown) (no (unknown) (unknown) Patient: (units (unkno wn) date) Len Zeng unknown) MR#: [id number] (unknown) (no (unknown) (unknown) Procedure: FL (units ( unknown) date) barium swallow w unknown) speech (unknown) (no (unknown) (unknown) Signed (units (unkno wn) date) unknown) (unknown) (no (unknown) (unknown) TECHNIQUE: (units (unk n) date) Examination was unknown) conducted in conjunction with speech pathology per (unknown) (no (unknown) (unknown) The (units (unkno wn) date) unknown) (unknown) (no (unknown) (unknown) XRay Report (units (un known) date) unknown) (unknown) (no (unknown) (unknown) also appear (units (un known) date) unremarkable with unknown) all proffered substances. No laryngotracheal (unknown) (no (unknown) (unknown) or aspiration. (units (unknown) date) Mild vallecular unknown) residue present with thicker consistencies. (unknown) (no (unknown) (unknown) penetration (units (un known) date) unknown) (unknown) (no (unknown) (unknown) protocol. In the (units (unknown) date) lateral unknown) projection, filming was performed of the patient (unknown) (no (unknown) (unknown) standard (units (unkno wn) date) unknown) (unknown) (no (unknown) (unknown) strictures. (units (un known) date) unknown) (unknown) (no (unknown) (unknown) subsequent oral (units (unknown) date) propulsive phase, unknown) pharyngeal phase, and esophageal phase of (unknown) (no (unknown) (unknown) swallowing (units (unk nown) date) unknown) (unknown) (no (unknown) (unknown) swallowing. (units (un known) date) unknown) Social History No information. Vital Signs No information.
--- NOTE | 2022-05-30 11:35 | ED Physician Documentation ---
PD HPI LOWER EXT INJURY - Stated complaint Stated Complaint: RT FT/ANKLE SWELLING - Chief complaint Chief Complaint: Ext Problem - History obtained from History obtained from: Patient - History of Present Illness PD HPI LOW EXT INJURY LOCATION: Right, Foot Type of injury: Twist Improved by: Rest, Ice, Immobilization, Meds Worsened by: Moving, Palpating Associated symptoms: Swelling, Discolored Similar symptoms before: Work up / diagnostics Recently seen: Clinic - Additional information Additional information: 32-year-old female presents with right foot pain. She has had pain intermittently for the last year and a half after spraining it but lately it seems to be more uncomfortable. Pain is across the midfoot, associated with some swelling and bruising at times. She is using a walking boot but states that she still has pain. 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 She has not attempted any medication regularly. She was concerned that there may be a hairline fracture that was not seen previously and is now exacerbated. She denies any new falls or injuries lately. No erythema, no fever chills Review of Systems Constitutional: reports: Reviewed and negative Cardiac: reports: Reviewed and negative Respiratory: reports: Reviewed and negative GI: reports: Reviewed and negative PD PAST MEDICAL HISTORY - Past Medical History Past Medical History: Yes Cardiovascular: Other - Past Surgical History Past Surgical History: Yes General: Appendectomy - Present Medications Home Medications: Ambulatory Orders Medication Instructions Recorded Confirmed Albuterol Sulf [Ventolin Hfa 1 - 2 puffs INH Q4HR PRN #1 inhaler 08/25/19 Inhaler] Ondansetron Odt [Zofran] 4 mg TL Q6H PRN #10 tablet 07/02/21 Oxycodone HCl/Acetaminophen 1 - 2 each PO Q6H PRN #14 tablet 07/02/21 [Percocet 5-325 mg Tablet] HYDROcod/ACETAM 5/325 [[place] 5/325] 1 - 2 tab PO Q6H PRN #15 tablet 02/06/22 Sucralfate [Carafate] 1 gm PO ACHS #60 tablet 02/06/22 - Allergies Allergies/Adverse Reactions: Allergies Allergy/AdvReac Type Severity Reaction Status Date / Time Penicillins Allergy Unknown Verified 05/30/22 10:34 - Social History Does the pt smoke?: Yes Smoking Status: Current every day smoker Does the pt drink ETOH?: No Does the pt have substance abuse?: Yes - Immunizations Immunizations are current?: Yes - POLST Patient has POLST: No PD ED PE NORMAL - Vitals Vital signs reviewed: Yes - General General: Alert and oriented X 3, No acute distress, Well developed/nourished - HEENT HEENT: Atraumatic, Moist mucous membranes - Cardiac Cardiac: RRR, No murmur - Respiratory Respiratory: No respiratory distress, Clear bilaterally - Abdomen Abdomen: Normal bowel sounds, Soft, Non tender, Non distended - Derm Derm: Normal color, Warm and dry, No rash - Extremities Extremities: No deformity, Other (Pain across the right midfoot without obvious deformity or swelling, no erythema. 2+ pedal pulses. No ankle pain, brisk cap refill and moving toes without difficulty. No other extremity pain) - Neuro Neuro: Alert and oriented X 3 Eye Opening: Spontaneous Motor: Obeys Commands Verbal: Oriented GCS Score: 15 - Psych Psych: Normal mood, Normal affect Results - Vitals Vitals: Vital Signs - 24 hr 05/30/22 10:29 Temperature 36.7 C Heart Rate 107 H Respiratory 16 Rate Blood Pressure 144/83 H O2 Saturation 99 Oxygen O2 Source Room air - Rads (name of study) No standard instances Radiology: Final report received, EMP read indepedently PD Medical Decision Making - ED course Complexity details: reviewed results, re-evaluated patient, considered differential, d/w patient ED course: Patient presented with right foot pain as described in HPI. She has no acute injuries noted on physical exam, x-ray was obtained which is reassuring. The patient was advised that she should continue to follow-up with her PCP, consider referral to podiatry if ongoing pain. In the meantime she can utilize cool compress, ibuprofen and Tylenol and continue to use a walking boot if comfortable. No emergent etiology for her foot pain was discovered today. Departure - Departure Clinical Impression: Pain in extremity Condition: Good
--- NOTE | 2022-05-30 11:52 | XRAY Report ---
PROCEDURE: Foot 3 View RT INDICATIONS: midfoot pain TECHNIQUE: 3 views of the foot were acquired. COMPARISON: Correlation is made with ankle plain films, 11/29/2020 FINDINGS: Bones: No fractures or dislocations. No suspicious bony lesions. Soft tissues: No tibiotalar joint effusion. Achilles tendon appears normal. IMPRESSION: Foot plain films within normal limits. Reviewed by: Aquilino Bhatt MD on 05/30/2022 10:50 AM [facility] Approved by: Aquilino Bhatt MD on 05/30/2022 10:50 AM [facility] Station ID: [id number]
[2022-05-30 12:06] VITALS: BP 130/80
== END 2022-05-30 12:05 | disposition home or self-care (01) ==
LOC: ED 10:16
DX: M79.671 Pain in right foot (principal); F17.200 Nicotine dependence, unspecified, uncomplicated
CPT/HCPCS: 99283

== ENCOUNTER 2023-12-19 12:59 | Emergency (ER) | payer MEDICAID ==
[2023-12-19 13:20] VITALS: O2SAT 100
--- NOTE | 2023-12-19 14:08 | ED Physician Documentation ---
History of Present Illness - Stated complaint Stated Complaint: EXCESSIVE SLEEPING, N, DIZZINESS - Chief complaint Chief Complaint: General - History obtained from History obtained from: Patient - Additonal information Additional information: Patient is a 33-year-old female presenting to the emergency department for increased sleepiness nausea and lower pelvic pain. She notes she has had increasing frequency with urination and feels as though she has had a UTI. She notes symptoms feel similar to previous. She denies any unilateral back pain no fevers or chills with her symptoms. She feels nauseous but no vomiting at home. She notes that she has not taken anything for symptoms at home. Patient denies being . She denies any viral URI symptoms no cough sore throat or congestion. She has been eating less due to her nausea and fatigue. PD PAST MEDICAL HISTORY - Past Medical History Past Medical History: Yes Cardiovascular: Hypertension, Other Psych: Depression, Anxiety - Past Surgical History Past Surgical History: Yes General: Appendectomy - Present Medications Home Medications: Ambulatory Orders Medication Instructions Recorded Confirmed Albuterol Sulf [Ventolin Hfa 1 - 2 puffs INH Q4HR PRN #1 inhaler 08/25/19 Inhaler] Ondansetron Odt [Zofran] 4 mg TL Q6H PRN #10 tablet 07/02/21 Oxycodone HCl/Acetaminophen 1 - 2 each PO Q6H PRN #14 tablet 07/02/21 [Percocet 5-325 mg Tablet] HYDROcod/ACETAM 5/325 [[place] 5/325] 1 - 2 tab PO Q6H PRN #15 tablet 02/06/22 Sucralfate [Carafate] 1 gm PO ACHS #60 tablet 02/06/22 Nitrofurantoin [Macrobid] 1 cap PO BID #10 cap 12/19/23 - Allergies Allergies/Adverse Reactions: Allergies Allergy/AdvReac Type Severity Reaction Status Date / Time acetaminophen [From Vicodin] Allergy Hives Verified 12/19/23 13:08 hydrocodone [From Vicodin] Allergy Hives Verified 12/19/23 13:08 Penicillins Allergy Unknown Verified 05/30/22 10:34 - Social History Does the pt smoke?: Yes Smoking Status: Current every day smoker Does the pt drink ETOH?: No Does the pt have substance abuse?: Yes - Immunizations Immunizations are current?: Yes - POLST Patient has POLST: No PD ED PE NORMAL - Vitals Vital signs reviewed: Yes - General General: Alert and oriented X 3 - HEENT HEENT: Atraumatic - Neck Neck: Supple, no meningeal sign - Cardiac Cardiac: RRR, No murmur, No gallop, No rub - Respiratory Respiratory: No respiratory distress, Clear bilaterally - Abdomen Abdomen: Normal bowel sounds, Soft, Other (No CVA tenderness on examination. Tenderness on palpation to lower abdomen no unilateral abdominal tenderness active bowel sounds on auscultation.) - Female Female : Deferred - Rectal Rectal: Deferred - Back Back: No CVA TTP - Derm Derm: Normal color, No rash - Extremities Extremities: No deformity - Neuro Neuro: Alert and oriented X 3 - Psych Psych: Normal mood Results - Vitals Vitals: Vital Signs - 24 hr 12/19/23 12/19/23 13:08 15:28 Temperature 36.8 C Heart Rate 106 H 87 Respiratory 18 Rate Blood Pressure 134/80 H 122/68 O2 Saturation 100 100 Oxygen O2 Source Room air - Labs Labs: Laboratory Tests 12/19/23 12/19/23 12/19/23 14:10 14:41 14:41 WBC 10.5 RBC 4.48 Hgb 13.5 Hct 41.8 MCV 93.3 MCH 30.1 MCHC 32.3 RDW 12.4 Plt Count 309 MPV 9.3 Neut # (Auto) 6.5 Lymph # (Auto) 3.2 [place] # (Auto) 0.5 Eos # (Auto) 0.3 Baso # (Auto) 0.1 Absolute Nucleated RBC 0.00 Nucleated RBC % 0.0 Sodium 137 Potassium 4.1 Chloride 100 L Carbon Dioxide 32 Anion Gap 5.0 L BUN 12 Creatinine 0.7 Estimated GFR (MDRD) 96 Glucose 95 Calcium 9.7 Total Bilirubin 0.2 AST 19 ALT 16 Alkaline Phosphatase 83 Total Protein 7.3 Albumin 4.3 Globulin 3.0 Albumin/Globulin Ratio 1.4 Lipase 22 Urine Color YELLOW Urine Clarity SL. CLOUDY Urine pH 7.5 Ur Specific [place] 1.020 Urine Protein NEGATIVE Urine Glucose (UA) NEGATIVE Urine Ketones NEGATIVE Urine Occult Blood NEGATIVE Urine Nitrite POSITIVE H Urine Bilirubin NEGATIVE Urine Urobilinogen 0.2 (NORMAL) Ur Leukocyte Esterase NEGATIVE Urine RBC None Seen Urine WBC 0-3 Ur Squamous Epith Cells RARE Squamous Urine Bacteria Moderate H Ur Microscopic Review INDICATED Urine Culture Comments INDICATED Urine HCG, Qual NEGATIVE PD Medical Decision Making - ED course Complexity details: reviewed old records, reviewed results ED course: Patient is a 33-year-old female presenting to the emergency department with increased fatigue and UTI symptoms. She notes increased frequency with urination. She denies any unilateral back pain. She denies any fevers. She notes some mild nausea but no vomiting at home. Patient's vital stable on arrival she is afebrile nontachycardic. Physical exam shows reproducible lower pelvic pain without rebound or guarding. Active bowel sounds on auscultation. No CVA tenderness on examination. Labs here showed no significant leukocytosis. Lipase is within normal range and electrolytes within normal range. Urine analysis is positive for nitrites and white blood cells in the urine. Will cover with Macrobid here in the emergency department due to patient's history of allergies to penicillins. Patient given first dose here in the emergency department. She is feeling better after Zofran given and will follow- up with PCP in outpatient setting in 1 to 2 weeks to ensure resolution of symptoms. She is instructed to return with any unilateral back pain any fevers any persistent nausea or vomiting. Patient understands and is agreeable with this plan. Departure - Departure Disposition: 01 Home, Self Care Clinical Impression: UTI (urinary tract infection) Condition: Good Instructions: ED UTI Cystitis Female Comments: You were seen here in the emergency department for your lower pelvis pain and frequency with urination and fatigue. You were found to have a UTI I started you on antibiotics for your symptoms please return to the emergency department with any fevers lower back pain nausea vomiting or unable to keep down pills return to the emergency department due to symptoms and follow-up with your PCP i n 2 weeks for insurance of resolution of symptoms. Forms: PCP List
[2023-12-19 14:23] LABS: BILIRUBIN,URINE NEGATIVE (NEGATIVE); GLUCOSE, URINE (UA) NEGATIVE (NEGATIVE); KETONES,URINE (UA) NEGATIVE (NEGATIVE); LEUKOCYTE ESTERASE, URINE NEGATIVE (NEGATIVE); NITRITE,URINE POSITIVE (NEGATIVE); OCCULT BLOOD,URINE NEGATIVE (NEGATIVE); PH,URINE 7.5 PH (5.0-7.5); PROTEIN,URINE NEGATIVE (NEGATIVE); UROBILINOGEN,URINE 0.2 (NORMAL) E.U./dL (NORMAL)
[2023-12-19 14:25] LABS: CLARITY,URINE SL. CLOUDY (CLEAR); HCG UR QUAL NEGATIVE
[2023-12-19 14:28] LABS: BACTERIA,URINE Moderate /HPF (None Seen); RBC,URINE None Seen /HPF (0-5); SQUAMOUS EPITHELIAL CELL,UR RARE Squamous (<= Few); WBC,URINE 0-3 /HPF (0-5)
[2023-12-19 14:45] LABS: BASOPHILS # (AUTO) 0.1 10^3/uL (0.0-0.1); BASOPHILS % (AUTO) 0.7 %; EOSINOPHILS # (AUTO) 0.3 10^3/uL (0.0-0.7); EOSINOPHILS % (AUTO) 2.8 %; HCT - HEMATOCRIT 41.8 % (37.0-47.0); HGB - HEMOGLOBIN 13.5 g/dL (12.0-16.0); LYMPHOCYTES # (AUTO) 3.2 10^3/uL (1.5-3.5); LYMPHOCYTES % (AUTO) 30.1 %; MEAN CORPUSCULAR HEMOGLOBIN 30.1 pg (27.0-31.0); MEAN CORPUSCULAR HGB CONC 32.3 g/dL (32.0-36.0); MEAN CORPUSCULAR VOLUME 93.3 fL (81.0-99.0); MEAN PLATELET VOLUME 9.3 fL (7.9-10.8); MONOCYTES # (AUTO) 0.5 10^3/uL (0.0-1.0); MONOCYTES % (AUTO) 4.8 %; NEUTROPHILS # (AUTO) 6.5 10^3/uL (1.5-6.6); NEUTROPHILS % (AUTO) 61.3 %; PLT - PLATELET COUNT 309 10^3/uL (130-450); RED BLOOD COUNT 4.48 10^6/uL (4.20-5.40); RED CELL DISTRIBUTION WIDTH 12.4 % (12.0-15.0); WHITE BLOOD COUNT 10.5 x10^3/uL (4.8-10.8)
[2023-12-19 15:04] LABS: ALBUMIN 4.3 g/dL (3.2-5.5); ALBUMIN/GLOBULIN RATIO 1.4 (1.0-2.2); BILIRUBIN,TOTAL 0.2 mg/dL (0.2-1.0); CALCIUM 9.7 mg/dL (8.5-10.3); CREATININE 0.7 mg/dL (0.6-1.3); POTASSIUM 4.1 mmol/L (3.5-4.5); TOTAL PROTEIN 7.3 g/dL (6.4-8.9)
[2023-12-19] MEDS: ONDANSETRON 4 MG/2 ML VIAL IVP STA (15:06)
[2023-12-19 15:37] VITALS: BP 122/68
[2023-12-19] MEDS: NITROFURANTOIN MACRO 100 MG CAPSULE PO STA (16:01)
--- NOTE | 2023-12-22 12:23 | ED Physician Documentation ---
ED Addendum - Addendum Addendum: 12/22/23 12:23 Culture reviewed, pansensitive E. coli. She was put on Macrobid which is appropriate. No further action necessary.
== END 2023-12-19 16:23 | disposition home or self-care (01) ==
LOC: ED 12:59
DX: N39.0 Urinary tract infection, site not specified (principal); B96.20 Unspecified Escherichia coli [E. coli] as the cause of diseases classified elsewhere; I10 Essential (primary) hypertension; Z79.899 Other long term (current) drug therapy; F17.200 Nicotine dependence, unspecified, uncomplicated
CPT/HCPCS: 36415; 80053; 81001; 81025; 83690; 85025; 87086; 87181; 96374; 99283; A9270; 81003